=== PATIENT | male | born 1945 | race Caucasian/White ===

== ENCOUNTER 2016-12-13 10:01 | Emergency (ER) | payer OTHER ==
[~2016-12-13 10:01] MED LIST: B-122500 MCG PO; BACTRIM1 TAB PO; CARVEDILOL3.125 MG PO; CRANBERRY PO; FLOMAX0.4 MG PO; FUROSEMIDE20 MG PO; K-TABS10 MEQ PO; KEFLEX500 M1 PO; LEVOFLOXACIN500 MG PO; LIPITOR10 MG PO; LOTRISONE TOP; METFORMIN HCL500 MG PO; NITROSTAT0.4 MG SL; NORVASC10 MG PO; OMEPRAZOLE20 M1 PO; SENNA-TABS8.6 MG PO; VITAMIN C500 M1 PO; XARELTO10 MG PO; XARELTO20 MG PO
--- NOTE | 2016-12-13 12:11 | DIAGNOSTIC IMAGING REPORT ---
PROCEDURE: ABDOMEN/PELVIS WITH CONTRAST CLINICAL INDICATION: ABDOMINAL PAIN TECHNIQUE: 150 ml of Isovue 300 were injected intravenously and axial images were obtained of the abdomen and pelvis with sagittal and coronal reformations. COMPARISON: None. FINDINGS: ABDOMEN: Mild diffuse hepatic steatosis. There is a five, there are two stones, five and 6 mm, dependently near the gallbladder neck. 4 mm calcification in the upper pole of the right kidney, nonobstructing. Multiple cystic structures arising from the cortex of each kidney. Punctate calcification in the spleen. Normal pancreas, adrenal glands, retroperitoneal vessel caliber. Mild calcific distal aortic atherosclerosis. Normal appendix. Fluid levels throughout normal-caliber colon. Occasional diverticula in the proximal colon and mild diverticulosis of the distal colon. Decompressed small bowel loops. There is a staple ring indicating a small bowel anastomoses in the left mid abdomen. There is rectus diastases/wide necked umbilical hernia in the infraumbilical region. PELVIS: The prostate gland is diffusely enlarged. The urinary bladder is moderately distended. Pelvic vessels are normal. No pelvic mass or adenopathy. No inguinal hernias. No free pelvic fluid. Degenerative disc change at the L2-3 level and flowing osteophytosis through the thoracic spine. Vacuum phenomenon at the sacroiliac joints. Degenerative change in the pubic symphysis. IMPRESSION: 1. Mild diverticulosis without acute diverticulitis. 2. Cholelithiasis. 3. Prostatomegaly. 4. Hepatic steatosis. 5. Nonobstructing right upper pole intrarenal calculus. 6. Findings called to the emergency room. All CT scans at this facility use dose modulation, iterative reconstruction, and/or weight-based dosing when appropriate to reduce radiation dose to as low as reasonably achievable.
--- NOTE | 2016-12-13 12:58 | ED ORDER SUMMARY ---
..... Patient: DELFINA RAMIREZ OrderSheet [facility] VisitID: [id number] [place] [address] 71y, M Registration Date/Time: 12/13/2016 ORDER SHEET Weight: 136.0 kg (stated) Allergies: Doxazosin, Erythromycin, Latex, Oxycodone, Penicillins GENERAL ORDERS: CBC w Diff Urgent (10:12/13/2016 Shilpa STEEL) (Ack 10:09 Tatyana) (10:43 JSanders R.N.) CMP Urgent (10:12/13/2016 Shilpa STEEL) (Ack 10:09 Tatyana) (10:43 JSanders R.N.) UA-Culture if indicated Urgent (10:12/13/2016 Shilpa STEEL) (Ack 10:09 Tatyana) (11:04 JSanders R.N.) Amylase Urgent (10:12/13/2016 Shilpa STEEL) (Ack 10:09 Tatyana) (10:43 JSanders R.N.) Lipase Urgent (10:12/13/2016 Shilpa STEEL) (Ack 10:09 Tatyana) (10:43 JSanders R.N.) Blood Culture (No) (N/A) Urgent (11:00 12/13/2016 Shilpa STEEL) (Ack 11:03 Tatyana) (11:47 JSanders R.N.) Lactate, Serum Urgent (11:00 12/13/2016 Shilpa STEEL) (Ack 11:03 Tatyana) (11:47 JSanders R.N.) PT with INR Urgent (11:12 12/13/2016 Shilpa STEEL) (Ack 11:24 Tatyana) (11:47 JSanders R.N.) PTT Urgent (11:12 12/13/2016 Shilpa STEEL) (Ack 11:24 Tatyana) (11:47 JSanders R.N.) CT Abd/Pel w Cont (Yes) (See report) Urgent (11:13 12/13/2016 Shilpa STEEL) (Ack 11:24 Tatyana) (11:47 JSanders R.N.) MEDICATION ORDERS: IV FLUIDS: IV Saline Lock (10:06 12/13/2016 Shilpa STEEL) (10:43 Brittany Corley) IV NS : initial bolus 500 mL (1000 mL/hr), then 125 mL/hr for 4h (NOW); Urgent (10:51 12/13/2016 Shilpa STEEL) (11:04 Brittany Cleveland.N.) IV NS : initial bolus 500 mL (1000 mL/hr), then 1000 mL/hr for X1 (NOW) (Patients BP needs to increase to above 105 systolic) (13:27 12/13/2016 Brittany Corley verbal order read back to Shilpa STEEL) (13:30 Brittany R.NBarry) ORDER SHEET NOTES: [Electronically signed by Bhargavi Tellez R.N. (14:38 12/13/2016)] [Electronically signed by Nathan Velasco MD (16:41 12/13/2016)] [Electronically locked/signed by Bhargavi Tellez R.N. (14:38 12/13/2016)]
--- NOTE | 2016-12-13 12:58 | ED ORDER SUMMARY ---
..... Patient: DELFINA RAMIREZ OrderSheet [facility] VisitID: [id number] [place] [address] 71y, M Registration Date/Time: 12/13/2016 ORDER SHEET Weight: 136.0 kg (stated) Allergies: Doxazosin, Erythromycin, Latex, Oxycodone, Penicillins GENERAL ORDERS: CBC w Diff Urgent (10:12/13/2016 Shilpa STEEL) (Ack 10:09 Tatyana) (10:43 JSanders R.N.) CMP Urgent (10:12/13/2016 Shilpa STEEL) (Ack 10:09 Tatyana) (10:43 JSanders R.N.) UA-Culture if indicated Urgent (10:12/13/2016 Shilpa STEEL) (Ack 10:09 Tatyana) (11:04 JSanders R.N.) Amylase Urgent (10:12/13/2016 Shilpa STEEL) (Ack 10:09 Tatyana) (10:43 JSanders R.N.) Lipase Urgent (10:12/13/2016 Shilpa STEEL) (Ack 10:09 Tatyana) (10:43 JSanders R.N.) Blood Culture (No) (N/A) Urgent (11:00 12/13/2016 Shilpa STEEL) (Ack 11:03 Tatyana) (11:47 JSanders R.N.) Lactate, Serum Urgent (11:00 12/13/2016 Shilpa STEEL) (Ack 11:03 Tatyana) (11:47 JSanders R.N.) PT with INR Urgent (11:12 12/13/2016 Shilpa STEEL) (Ack 11:24 Tatyana) (11:47 JSanders R.N.) PTT Urgent (11:12 12/13/2016 Shilpa STEEL) (Ack 11:24 Tatyana) (11:47 JSanders R.N.) CT Abd/Pel w Cont (Yes) (See report) Urgent (11:13 12/13/2016 Shilpa STEEL) (Ack 11:24 Tatyana) (11:47 JSanders R.N.) MEDICATION ORDERS: IV FLUIDS: IV Saline Lock (10:06 12/13/2016 Shilpa STEEL) (10:43 Brittany Corley) IV NS : initial bolus 500 mL (1000 mL/hr), then 125 mL/hr for 4h (NOW); Urgent (10:51 12/13/2016 Shilpa STEEL) (11:04 Brittany Cleveland.N.) IV NS : initial bolus 500 mL (1000 mL/hr), then 1000 mL/hr for X1 (NOW) (Patients BP needs to increase to above 105 systolic) (13:27 12/13/2016 Brittany Corley verbal order read back to Shilpa STEEL) (13:30 Brittany R.NBarry) ORDER SHEET NOTES: [Electronically signed by Bhargavi Tellez R.N. (14:38 12/13/2016)] [Electronically signed by Nathan Velasco MD (16:41 12/13/2016)] [Electronically locked/signed by Bhargavi Tellez R.N. (14:38 12/13/2016)]
--- NOTE | 2016-12-13 12:58 | ED NURSING NOTES ---
Clinical Report - Nurses [facility] [address] [place] [address] 12/13/2016 10:02 Patient: DELFINA RAMIREZ TRIAGE Triage time 10:11 Dec 13 2016. Acuity: LEVEL 4. Chief Complaint: ABDOMINAL PAIN and NAUSEA and ACHES, PAINFUL URINATION, URINARY FREQUENCY and FLANK PAIN (Patient has some LUQ pain). 10:18 12/13/16. SEPSIS SCREEN: Sepsis Screen. Negative (no infection suspected/documented). NIKA COMA SCORE: Nika Coma Scale: 15- eyes open spontaneously (4); best verbal response- oriented x 4 (5); best motor response- obeys commands (6). --10:18 Bhargavi Tellez R.N. 10:22 12/13/16. --10:22 Bhargavi Tellez R.N. 10:21 12/13/16. BP: 90/69 (regular adult cuff) taken on the left arm, while lying. HR: 96. RR: 20 (regular). O2 saturation: 96% on room air. Temp: 98.2 F (oral). Pain level now: 4/10. Additional comments: LUQ. --10:22 Bhargavi Tellez R.N. Weight: 136 kg stated. Height/Length: 72 inches Per Patient. BMI: 40.7. --10:14 Bhargavi Tellez R.N. Medications AmLODIPine Besylate Oral (Tablet 5 mg) 1 tablet, daily. Atorvastatin Calcium Oral 40 mg, at bedtime. Cyanocobalamin ER Oral (Tablet Extended Release 2000 mcg) 1 tablet. Furosemide Oral (Tablet 20 mg) 3 tab, daily. --10:13 Bhargavi Tellez R.N. Carvedilol Oral (Tablet 3.125 mg) 1 tablet, BID. Cranberry Oral 6400mg, daily. Lisinopril Oral (Tablet 40 mg) 1 tablet, daily. Potassium Chloride Oral 10 meq, daily. Senna Oral. Tamsulosin HCl Oral (Capsule 0.4 mg) 2 capsules, at bedtime. Vitamin c Oral 2000mg, daily. --10:13 Bhargavi Tellez R.N. MetFORMIN HCl Oral (Tablet 500 mg) 2 tablets, 2x a day. --11:15 Bhargavi Tellez R.N. Allopurinol Oral (Tablet 300 mg) 1 tablet, daily. --11:58 Bhargavi Tellez R.N. Ammonium Lactate External (Lotion 12 %) Small amount. --11:59 Bhargavi Tellez R.N. Aspirin Oral (Tablet Chewable 81 mg) 1 tablet, daily. --12:00 Bhargavi Tellez R.N. Colchicine Oral (Tablet 0.6 mg) 2 tablets, as needed. --12:00 Bhargavi Tellez R.N. Xarelto Oral (Tablet 20 mg) 1 tablet, daily. --12:01 Bhargavi Tellez R.N. The following entry was struck by Bhargavi Tellez R.N., 11:57 (12/13/16) Reason - other. <<STRICKEN ENTRY-- Rivaroxaban Oral (Tablet 20 mg), daily. --10:13 Bhargavi Tellez R.N. --END STRIKE>> The following entry was struck and corrected by Bhargavi Tellez R.N., 11:56 (12/13/16) Reason for correction - other(correction). <<STRICKEN ENTRY-- MetFORMIN HCl Oral. --11:15 Nathan Velasco MD --END STRIKE>> The following entry was struck and corrected by Bhargavi Tellez R.N., 11:55 (12/13/16) Reason for correction - other(correction). <<STRICKEN ENTRY-- Furosemide Oral 20 mg, 2x a day. --10:13 Bhargavi Tellez R.N. --END STRIKE>> The following entry was struck and corrected by Bhargavi Telelz R.N., 11:55 (12/13/16) Reason for correction - other(correction). <<STRICKEN ENTRY-- Cyanocobalamin ER Oral 2500mcg. --10:13 Bhargavi Tellez R.N. --END STRIKE>> The following entry was struck by Bhargavi Tellez R.N., 11:54 (12/13/16) Reason - other. <<STRICKEN ENTRY-- Clotrimazole-Betamethasone External. --10:13 Bhargavi Tellez R.N. --END STRIKE>> The following entry was struck and corrected by Bhargavi Tellez R.N., 11:54 (12/13/16) Reason for correction - other(correction). <<STRICKEN ENTRY-- Atorvastatin Calcium Oral 10 mg, at bedtime. --10:13 Bhargavi Tellez R.N. --END STRIKE>> The following entry was struck and corrected by Bhargavi Tellez R.N., 11:53 (12/13/16) Reason for correction - other(correction). <<STRICKEN ENTRY-- AmLODIPine Besylate Oral 10 mg. --10:13 Bhargavi Tellez R.N. --END STRIKE>> The following entry was struck by Nathan Velasco MD, 11:06 (12/13/16) Reason - other. <<STRICKEN ENTRY-- SMZ-TMP DS Oral. --10:13 Bhargavi Tellez R.N. --END STRIKE>> The following entry was struck by Nathan Velasco MD, 11:06 (12/13/16) Reason - other. <<STRICKEN ENTRY-- Omeprazole Oral 20 mg, daily. --10:13 Bhargavi Tellez R.N. --END STRIKE>> The following entry was struck by Nathan Velasco MD, 11:06 (12/13/16) Reason - other. <<STRICKEN ENTRY-- Lovenox Subcutaneous (taking due surgery scheduled tomorrow). --10:13 Bhargavi Tellez R.N. --END STRIKE>>. Allergies Doxazosin. Erythromycin. Latex. Oxycodone. Penicillins. --10:13 Bhargavi Tellez R.N. History Arrived by private vehicle. Historian: patient. Accompanied by family. ( Patient states that he had pain yesterday in his left flank, PCP was going to do an US on the area but when patient was getting ready to go to this he became dizzy so he just layed down with a heating pad, when he woke up this morning his pain was in his LUQ intermittent dull pain so he tried heat again for this and decided to come in to be evaluated. This LUQ pain is in the same location of his SBO surgery). This started yesterday. ( Patient says he has hx of kidney stones and diverticulitis, partial SBR 11 years ago.). He has had moderate, dull, aching, intermittent abdominal pain. The pain is described as located in the LUQ and associated with nausea. Last oral intake by patient was last night (8 PM). Treatment [employer]: (Heating pad to left flank last night, and RUQ pain today). PAST MEDICAL HX: Diabetes mellitus. SOCIAL HX: Smoker- current status unknown. No alcohol use or drug use. No recent travel. No infectious disease exposure. No known contact with a sick individual. ABUSE ASSESSMENT: No report of abuse. --10:18 Bhargavi Tellez R.N. PROBLEMS: TIA - Transient Ischemic Attack. Myocardial Infarction. Diabetes Mellitus. Benign Prostatic Hypertrophy. Arrhythmia. Atrial Fibrillation. Renal Insufficiency. Congestive Heart Failure. Pyelonephritis. Bursitis. Diverticulitis. Rheumatoid Arthritis. Hypertension. Nephrolithiasis. Heart Failure. --10:14 Bhargavi Tellez R.N. UTI - Urinary Tract Infection [RuleOut]. --12:53 Nathan Velasco MD The following entry was modified by Nathan Velasco MD, 12:53 <<STRICKEN ENTRY-- UTI - Urinary Tract Infection. --00:41 Bhargavi Tellez R.N. --END STRIKE>>. ADDITIONAL SURGERIES: Small intestine excision. --10:14 Bhargavi Tellez R.N. Interventions ID band on patient. To treatment room. --10:18 Bhargavi Tellez R.N. PHYSICAL ASSESSMENT 10:21 12/13/16. Ambulatory to room. GENERAL / NEURO / PSYCH: Alert. Oriented X 4. RESPIRATORY: Respirations not labored. CVS: Capillary refill less than 2 seconds. GI / : The patient has had nausea. Obesity. Abdominal tenderness. Rebound tenderness. Guarding present. Diminished bowel sounds in the RLQ and LLQ. EXTREMITIES: Lower extremity edema. SKIN: Skin is warm. --10:21 Bhargavi Tellez R.N. NURSING PROGRESS NOTES 10:23 12/13/16. The plan of care for this patient has been created. Monitoring of patient in place. Patient gowned. Head of bed elevated. Reassurance given. Two patient identifiers checked. Call light placed in reach. Side rails up x 1. Bed placed in lowest position. Brakes of bed on. Patient ready for evaluation- chart flagged and ED physician notified. --10:23 Bhargavi Tellez R.N. 10:42 12/13/16. ( Patient asymptomatic laying down, BP reports 87/65). --10:42 Bhargavi Tellez R.N. 10:41 12/13/16. BP: 87/65 (large adult cuff) taken on the left arm, while lying. HR: 82. RR: 20 (regular). O2 saturation: 98% on room air. Pain level now: 0/10. --10:42 Bhargavi Tellez R.N. 10:43 12/13/2016 Site #1 started via IV in the right antecubital space with an 20g angiocath, with aseptic technique and good blood return; one attempt. Blood drawn: rainbow set. Labeled in the presence of the patient and sent to the lab. Saline lock flushed with 10 mL saline. --10:43 Bhargavi Tellez R.N. 11:04 12/13/2016 Started bag #1 1000 mL IV Fluids IV NS (Saline); bolus of 500 mL over 30 second(s) then at 1000 mL/hr over 1 hour(s) via site #1 via IV pump. Allergies verified and confirmed 5 rights. IV patency established. IV site checked: no pain, redness, or swelling. IV flushed thoroughly pre- and post-medication administration. --11:04 Bhargavi Tellez R.N. 11:37 12/13/16. Patient transported to radiology by wheelchair with tech. (11:36 Dec 13 2016). --11:37 Bhargavi Tellez R.N. 11:45 12/13/16. Patient returned from radiology by wheelchair with tech. (11:45 Dec 13 2016). --11:45 Bhargavi Tellez R.N. 11:52 12/13/16. ( Patient was taken off the IV pump and monitors by [employer], he was put back on now by this nurse). --11:52 Bhargavi Tellez R.N. 11:52 12/13/16. BP: 107/76 (large adult cuff) taken on the left arm, while sitting. HR: 78. RR: 20 (regular). O2 saturation: 99% on room air. Pain level now: 0/10. --11:52 Bhargavi Tellez R.N. 11:52 12/13/16. --11:52 Bhargavi Tellez R.N. 12:02 12/13/2016 IV Fluids IV NS via IV site #1 Rate Changed: bag #1 decreased to 125 mL/hr via IV pump. IV patency established. IV site checked: no pain, redness, or swelling. IV flushed thoroughly. Confirmed 5 Rights. --12:02 Bhargavi Tellez R.N. 12:33 12/13/16. BP: 93/59 (regular adult cuff) taken on the left arm, while lying. HR: 82. RR: 20. O2 saturation: 96% on room air. Temp: 97.8 F (oral). Pain level now: 0/10. --12:35 Bhargavi Tellez R.N. 12:35 12/13/16. ( Patient says he doesn't need anything for now and neither does spouse, he is resting comfortably with spouse at bedside). --12:35 Bhargavi Tellez R.N. 11:30 12/13/16. BP: 92/68 (large adult cuff) taken on the left arm, while lying. HR: 74. RR: 20. O2 saturation: 96% on room air. Pain level now: 0/10. --12:56 Bhargavi Tellez R.N. 13:19 12/13/16. ( Patient was up and walking with me around the halls x 2 and BP did not come up enough, when he went to CT scan his BP increased dramatically, Physician informed). --13:19 Bhargavi Tellez R.N. 13:16 12/13/16. BP: 83/57 (large adult cuff) taken on the left arm, while standing. HR: 76 (regular). RR: 20 (regular). O2 saturation: 100% on room air. Temp: 97.8 F (oral). Pain level now: 0/10. --13:19 Bhargavi Tellez R.N. 13:26 12/13/2016 IV Fluids IV NS Discontinued: bag #1 discontinued. Total amount infused: 700 mL. IV patency established. IV site checked: no pain, redness, or swelling. IV flushed thoroughly. --13:26 Bhargavi Tellez R.N. 13:29 12/13/2016 Started bag #1 1000 mL IV Fluids IV NS (Saline); bolus of 500 mL over 30 minute(s) then at 1000 mL/hr over 1 hour(s) via site #1 via dial-a-flow. Allergies verified and confirmed 5 rights. IV patency established. IV site checked: no pain, redness, or swelling. IV flushed thoroughly pre- and post-medication administration. --13:30 Bhargavi Tellez R.N. 13:52 12/13/16. BP: 101/70. HR: 81. RR: 20 (regular). O2 saturation: 100% on room air. Pain level now: 0/10. --13:53 Bhargavi Tellez R.N. 13:53 12/13/16. ( Patient was walked twice around the ER loop, BP is still 101/70). --13:53 Bhargavi Tellez R.N. 14:37 12/13/2016 IV Fluids IV NS Discontinued: bag #2 discontinued upon discharge. Total amount infused: 500 mL. IV patency established. IV site checked: no pain, redness, or swelling. IV flushed thoroughly. --14:37 Bhargavi Tellez R.N. DISPOSITION / DISCHARGE 14:34 12/13/16. BP: 101/71 (large adult cuff) taken on the left arm, while sitting. HR: 68 (regular). RR: 20 (regular). O2 saturation: 100% on room air. Temp: 97.7 F (oral). Pain level now: 0/10. --14:36 Bhargavi Tellez R.N. 14:22 12/13/2016 Site #1 removed upon discharge. Bandaid applied. --14:37 Bhargavi Tellez R.N. 14:36 12/13/16. Departure time: 14:Dec 13 2016. Condition at departure: improved. No learning barriers present. Discharge instructions provided and reviewed with the patient and spouse. Reviewed medication(s) side effects, precautions and dosing information. Prescription(s) given to the patient. Patient verbalized understanding. Written instructions provided in [place]. The patient was discharged by the physician. --14:36 Bhargavi Tellez R.N. Locked/Released at 12/13/2016 14:38 by Bhargavi Tellez R.N.
--- NOTE | 2016-12-13 12:58 | ED CLINICAL REPORT ---
Clinical Report - Physicians/Mid Levels [facility] [address] [place] [address] 12/13/2016 10:02 Patient: DELFINA RAMIREZ Time Seen: 10:05. Arrived- By private vehicle. Historian- patient. HISTORY OF PRESENT ILLNESS Chief Complaint: ABDOMINAL PAIN. This started several days ago and is still present and now worse. It was gradual in onset and has been intermittent and waxing/waning. At its maximum, severity described as 8 / 10. When seen in the E.D., severity described as 0 / 10. Modifying factors- relieved by rest. It is described as sharp and it is described as located in the left upper quadrant. The patient has had nausea (for several weeks). No loss of appetite or vomiting. He has had mild diarrhea (recently). This has occurred twice. No bloody diarrhea. The patient has an additional complaint of severe, intermittent abdominal pain for 6 hours in the L flank yesterday. Similar symptoms previously: Once. Diagnosis: diverticulitis. ( this occurred about 11 years ago). REVIEW OF SYSTEMS No difficulty with urination, pain with urination, urinary frequency, chills or fever. No sweats, calf pain, chest pain, cough or difficulty breathing. No pedal edema. He has had palpitations (chronically). He has had mild, occasional diarrhea. This has occurred twice. No bloody diarrhea. He reports that he had a colonoscopy about 10 years ago and had one polyp. All systems otherwise negative, except as recorded above. PAST HISTORY PCP - [facility] in [place]. Problems: Chest Pain. TIA - Transient Ischemic Attack. Myocardial Infarction. Diabetes Mellitus. Benign Prostatic Hypertrophy. Arrhythmia. UTI - Urinary Tract Infection. Atrial Fibrillation. Renal Insufficiency. Congestive Heart Failure. Pyelonephritis. Bursitis. Diverticulitis. Rheumatoid Arthritis. Hypertension. Nephrolithiasis. Heart Failure. Additional Surgeries: Small intestine excision. Medications: Xarelto Oral (Tablet 20 mg) 1 tablet, daily. Colchicine Oral (Tablet 0.6 mg) 2 tablets, as needed. Aspirin Oral (Tablet Chewable 81 mg) 1 tablet, daily. Ammonium Lactate External (Lotion 12 %) Small amount. Allopurinol Oral (Tablet 300 mg) 1 tablet, daily. MetFORMIN HCl Oral (Tablet 500 mg) 2 tablets, 2x a day. Carvedilol Oral (Tablet 3.125 mg) 1 tablet, BID. Cranberry Oral 6400mg, daily. Lisinopril Oral (Tablet 40 mg) 1 tablet, daily. Potassium Chloride Oral 10 meq, daily. Senna Oral. Tamsulosin HCl Oral (Capsule 0.4 mg) 2 capsules, at bedtime. Vitamin c Oral 2000mg, daily. AmLODIPine Besylate Oral (Tablet 5 mg) 1 tablet, daily. Atorvastatin Calcium Oral 40 mg, at bedtime. Cyanocobalamin ER Oral (Tablet Extended Release 2000 mcg) 1 tablet. Furosemide Oral (Tablet 20 mg) 3 tab, daily. Allergies: Doxazosin. Erythromycin. Latex. Oxycodone. Penicillins. SOCIAL HISTORY Former smoker, end date 1971. No alcohol use or drug use. Is a local resident. FAMILY HISTORY Diabetes in first-degree relative (father) and grandparent; heart disease in first-degree relative (father); cancer in first-degree relative (mother). ADDITIONAL NOTES The nursing notes have been reviewed. PHYSICAL EXAM Vital Signs: 12/13/2016 10:21 BP: 90/69. HR: 96. RR: 20. O2 saturation: 96%. Temp: 98.2 F. Pain level now: 4/10. Have been reviewed. Appearance: Alert. No acute distress. He is morbidly obese. Eyes: Pupils equal, round and reactive to light. ENT: Pharynx normal. Neck: Normal inspection. Neck supple. CVS: Abnormal rhythm, which is irregularly irregular. Heart sounds normal. Respiratory: No respiratory distress. Breath sounds normal. Abdomen: Soft. Moderate tenderness in the left upper quadrant. Bowel sounds normal. No organomegaly. No mass. Obese. Back: Normal inspection. Skin: Skin warm and dry. Normal skin color. Normal skin turgor. Extremities: Extremities exhibit normal ROM. No calf tenderness. No lower extremity edema. Neuro: No motor deficit. LABS, X-RAYS, AND EKG Abdominal CT: IMPRESSION: 1. Mild diverticulosis without acute diverticulitis. 2. Cholelithiasis. 3. Prostatomegaly. 4. Hepatic steatosis. 5. Nonobstructing right upper pole intrarenal calculus. The study was interpreted contemporaneously by me and discussed with the radiologist. Laboratory Tests: UA-Culture if indicated: (TERA: 12/13/2016 11:00) ( MsgRcvd 12/13/2016 11:19) Final results Test Result Flag Units (Reference) URINE COLOR YELLOW URINE APPEARANCE CLEAR URINE GLUCOSE NEGATIVE (NEGATIVE) URINE BILIRUBIN NEGATIVE (NEGATIVE) URINE KETONE NEGATIVE (NEGATIVE) URINE SPECIFIC GRAVITY 1.010 (1.010-1.030) URINE PH 5.5 (5.0-8.0) URINE PROTEIN NEGATIVE (NEGATIVE) URINE UROBILINOGEN 0.2 EU/dL (0.2-1.0) URINE NITRITE NEGATIVE (NEGATIVE) URINE BLOOD NEGATIVE (NEGATIVE) URINE LEUK ESTERASE TRACE (NEGATIVE) URINE RBC NONE SEEN rbc/hpf (0-1) URINE WBC 5-10 wbc/hpf (0-1) URINE EPITHELIAL CELLS 0-1 EPI/hpf (0-5) URINE BACTERIA FEW (1+) (NONE SEEN) URINE COMMENT CULTURE INDICATED URINE CULTURES ARE SET-UP BASED ON THE FOLLOWING CRITERIA:POSITIVE NITRITEPOSITIVE LEUKOCYTE ESTERASEGREATER THAN 10 WHITE BLOOD CELLSMODERATE (2+) OR GREATER BACTERIA CBC w Diff: (TERA: 12/13/2016 10:40) ( MsgRcvd 12/13/2016 10:56) Final results Test Result Flag Units (Reference) WHITE BLOOD COUNT 11.8 H K/uL (4.5-11.5) RED BLOOD COUNT 5.31 M/uL (4.50-5.90) HEMOGLOBIN 15.1 gm/dL (13.5-17.5) HEMATOCRIT 46.5 % (41.0-53.0) MEAN CELL VOLUME 88 fL (80-100) MEAN CORPUSCULAR HGB 29 pg (26-34) MEAN CORPUSCULAR HGB CONC 33 g/dL (31-37) RED CELL DISTRIBUTION WIDTH 13.2 % (11.6-14.8) PLATELET COUNT 177 K/uL (150-400) NEUTROPHIL % 79.6 H % (50-75) LYMPH % 15.2 L % (25-40) MONO % 4.0 % (3-14) EOSINOPHIL % 0.9 % (0-4) BASOPHIL % 0.3 % (0-2) PT with INR: (TERA: 12/13/2016 10:40) ( [facility] 12/13/2016 12:09) Final results Test Result Flag Units (Reference) INR 1.6 H (0.8-1.2) Low Intensity Therapy: INR 1.5-2.0 PT range 18.5-23.1Mod.Intensity Therapy: INR 2.0-3.0 PT range 23.1-31.5High Intensity Therapy: INR 2.5-3.5 PT range 27.4-35.5High Intensity Therapy 2: INR 3.0-4.0 PT range 31.5-39.3 APTT 39 H SECONDS (24-34) Lactate, Serum: (TERA: 12/13/2016 11:20) ( [facility] 12/13/2016 12:18) Final results Test Result Flag Units (Reference) LACTIC ACID 1.8 mmol/L (0.4-2.0) CMP: (TERA: 12/13/2016 10:40) ( [facility] 12/13/2016 11:11) Final results Test Result Flag Units (Reference) GLUCOSE 147 H mg/dL (70-110) BUN 21 H mg/dL (7-18) CREATININE 1.2 mg/dL (0.6-1.3) Estimated GFR >60 mL/min Estimated GFR- >60 mL/min Note: Persistent reduction over 3 months in eGFR<60 mL/min/1.73 m2 defines CKD. Patients with eGFR values>=60 mL/min/1.73 m2 may also have CKD if evidence ofpersistent proteinuria. Additional information may be foundat www.kidney.org. SODIUM 139 mmol/L (136-145) POTASSIUM 4.1 mmol/L (3.5-5.1) CHLORIDE 105 mmol/L (98-107) CARBON DIOXIDE 23 mmol/L (21-32) CALCIUM 9.6 mg/dL (8.5-10.1) TOTAL PROTEIN 7.3 g/dL (6.4-8.2) ALBUMIN 3.6 g/dL (3.3-5.0) BILIRUBIN, TOTAL 0.7 mg/dL (0.0-1.0) ALKALINE PHOSPHATASE 70 U/L (46-116) AST (SGOT) 18 U/L (15-37) ALT (SGPT) 40 U/L (12-78) LIPASE 132 U/L (73-393) AMYLASE 43 U/L (25-115) . PROGRESS AND PROCEDURES Course of Care: Patient is stable. Patient/family counseled. Old medical records ordered. Disposition: Discharged. Condition: stable. CLINICAL IMPRESSION Cholelithiasis. Acute left upper quadrant abdominal pain of unknown cause. Chronic diverticulosis. Acute urinary tract infection. INSTRUCTIONS Drink plenty of fluids. (Hold your Metformin for 2 days as discussed.). Warnings: Further evaluation is necessary. GENERAL WARNINGS: Return or contact your physician immediately if your condition worsens or changes unexpectedly, if not improving as expected, or if other problems arise. Your Current Medications: CONTINUE TAKING THE FOLLOWING MEDICATIONS: Allopurinol Oral : Tablet 300 mg, 1 tablet daily. AmLODIPine Besylate Oral : Tablet 5 mg, 1 tablet daily. Ammonium Lactate External : Lotion 12 %, Small amount. Aspirin Oral : Tablet Chewable 81 mg, 1 tablet daily. Atorvastatin Calcium Oral : 40 mg at bedtime. Carvedilol Oral : Tablet 3.125 mg, 1 tablet BID. Colchicine Oral : Tablet 0.6 mg, 2 tablets, prn. Cranberry Oral : 6400mg daily. Cyanocobalamin ER Oral : Tablet Extended Release 2000 mcg, 1 tablet. Furosemide Oral : Tablet 20 mg, 3 tab daily. Lisinopril Oral : Tablet 40 mg, 1 tablet daily. Potassium Chloride Oral : 10 meq daily. Senna Oral. Tamsulosin HCl Oral : Capsule 0.4 mg, 2 capsules at bedtime. Vitamin c Oral : 2000mg daily. Xarelto Oral : Tablet 20 mg, 1 tablet daily. CONTINUE TAKING THE FOLLOWING MEDICATIONS UNTIL YOU CHECK WITH YOUR PHYSICIAN: MetFORMIN HCl Oral : Tablet 500 mg, 2 tablets 2x a day. Prescription Medications: Cipro 500 mg: take 1 tab orally every 12 hours for 10 days. Dispense twenty (20). No refills. Substitution is permissible. Follow-up: Follow up with your doctor tomorrow. Call for an appointment. Follow up with a raw scales operator- as recommended by your primary care physician- Schedule your routine screening colonoscopy as discussed. Understanding of the discharge instructions verbalized by patient. (Electronically signed by Nathan Velasco MD 12/13/2016 16:41)
--- NOTE | 2016-12-13 16:41 | ED MAR SUMMARY ---
..... Medication Administration Record [facility] [address] [place] [address] Patient: DELFINA RAMIREZ Visit ID: [id number] 71y, M Weight: 136.0 kg Height/Length: 72 in BMI: 40.7 ALLERGIES: Doxazosin, Erythromycin, Latex, Oxycodone, Penicillins Start 11:04 12/13/2016 Bhargavi Tellez RBarryN., Stop 13:26 12/13/2016 Bhargavi Tellez R.N. Medication Administered: IV NS (SALINE), Dose: IV Fluids over 1 hour(s), Rate: 1000 mL/hr, Bolus: 500 mL over 30 second(s), Dispensed: 1000 mL bag, Site: #1 right AC. Medication Ordered: IV NS : initial bolus 500 mL (1000 mL/hr), then 125 mL/hr for 4h (NOW); Urgent. Start 13:29 12/13/2016 Bhargavi Tellez RBarryN., Stop 14:37 12/13/2016 Bhargavi Tellez R.N. Medication Administered: IV NS (SALINE), Dose: IV Fluids over 1 hour(s), Rate: 1000 mL/hr, Bolus: 500 mL over 30 minute(s), Dispensed: 1000 mL bag, Site: #1 right AC. Medication Ordered: IV NS : initial bolus 500 mL (1000 mL/hr), then 1000 mL/hr for X1 (NOW) (Patients BP needs to increase to above 105 systolic).
--- NOTE | 2016-12-13 16:41 | ED MED RECONCILIATION SUMMARY ---
Patient: DELFINA RAMIREZ Medication Reconciliation Report [facility] VisitID: [id number] [address] [place] [address] 71y, M Registration Date/Time: 12/13/2016 Weight: 136.0 kg Height/Length: 72 in. BMI: 40.7 ALLERGIES: Doxazosin, Erythromycin, Latex, Oxycodone, Penicillins The patient's Home Medications are listed below: CONTINUE TAKING THE FOLLOWING MEDICATIONS: Allopurinol Oral (300 mg) 1 tablet, daily AmLODIPine Besylate Oral (5 mg) 1 tablet, daily Ammonium Lactate External (12 %) Small amount Aspirin Oral (81 mg) 1 tablet, daily Atorvastatin Calcium Oral 40 mg, at bedtime Carvedilol Oral (3.125 mg) 1 tablet, BID Colchicine Oral (0.6 mg) 2 tablets Cranberry Oral 6400mg, daily Cyanocobalamin ER Oral (2000 mcg) 1 tablet Furosemide Oral (20 mg) 3 tab, daily Lisinopril Oral (40 mg) 1 tablet, daily Potassium Chloride Oral 10 meq, daily Senna Oral Tamsulosin HCl Oral (0.4 mg) 2 capsules, at bedtime Vitamin c Oral 2000mg, daily Xarelto Oral (20 mg) 1 tablet, daily CONTINUE TAKING THE FOLLOWING MEDICATIONS UNTIL YOU CHECK WITH YOUR PHYSICIAN: MetFORMIN HCl Oral (500 mg) 2 tablets, 2x a day The source(s) of the original Home Medication information: Not obtained. The following Medications were given to the patient in the Emergency Department: IV NS IV Fluids bolus 500 mL over 30 second(s), then 1000 mL/hr, administered: 12/13/2016 11:04:00 AM IV NS IV Fluids bolus 500 mL over 30 minute(s), then 1000 mL/hr, administered: 12/13/2016 1:29:00 PM The following Medications were prescribed to the patient: Cipro 500 mg: take 1 tab orally every 12 hours for 10 days. Dispense twenty (20). No refills. Substitution is permissible. -- Nathan Velasco MD
--- NOTE | 2016-12-13 16:41 | ED MED RECONCILIATION SUMMARY ---
Patient: DELFINA RAMIREZ Medication Reconciliation Report [facility] VisitID: [id number] [address] [place] [address] 71y, M Registration Date/Time: 12/13/2016 Weight: 136.0 kg Height/Length: 72 in. BMI: 40.7 ALLERGIES: Doxazosin, Erythromycin, Latex, Oxycodone, Penicillins The patient's Home Medications are listed below: CONTINUE TAKING THE FOLLOWING MEDICATIONS: Allopurinol Oral (300 mg) 1 tablet, daily AmLODIPine Besylate Oral (5 mg) 1 tablet, daily Ammonium Lactate External (12 %) Small amount Aspirin Oral (81 mg) 1 tablet, daily Atorvastatin Calcium Oral 40 mg, at bedtime Carvedilol Oral (3.125 mg) 1 tablet, BID Colchicine Oral (0.6 mg) 2 tablets Cranberry Oral 6400mg, daily Cyanocobalamin ER Oral (2000 mcg) 1 tablet Furosemide Oral (20 mg) 3 tab, daily Lisinopril Oral (40 mg) 1 tablet, daily Potassium Chloride Oral 10 meq, daily Senna Oral Tamsulosin HCl Oral (0.4 mg) 2 capsules, at bedtime Vitamin c Oral 2000mg, daily Xarelto Oral (20 mg) 1 tablet, daily CONTINUE TAKING THE FOLLOWING MEDICATIONS UNTIL YOU CHECK WITH YOUR PHYSICIAN: MetFORMIN HCl Oral (500 mg) 2 tablets, 2x a day The source(s) of the original Home Medication information: Not obtained. The following Medications were given to the patient in the Emergency Department: IV NS IV Fluids bolus 500 mL over 30 second(s), then 1000 mL/hr, administered: 12/13/2016 11:04:00 AM IV NS IV Fluids bolus 500 mL over 30 minute(s), then 1000 mL/hr, administered: 12/13/2016 1:29:00 PM The following Medications were prescribed to the patient: Cipro 500 mg: take 1 tab orally every 12 hours for 10 days. Dispense twenty (20). No refills. Substitution is permissible. -- Nathan Velasco MD
--- NOTE | 2016-12-13 16:41 | ED MAR SUMMARY ---
..... Medication Administration Record [facility] [address] [place] [address] Patient: DELFINA RAMIREZ Visit ID: [id number] 71y, M Weight: 136.0 kg Height/Length: 72 in BMI: 40.7 ALLERGIES: Doxazosin, Erythromycin, Latex, Oxycodone, Penicillins Start 11:04 12/13/2016 Bhargavi Tellez RBarryN., Stop 13:26 12/13/2016 Bhargavi Tellez R.N. Medication Administered: IV NS (SALINE), Dose: IV Fluids over 1 hour(s), Rate: 1000 mL/hr, Bolus: 500 mL over 30 second(s), Dispensed: 1000 mL bag, Site: #1 right AC. Medication Ordered: IV NS : initial bolus 500 mL (1000 mL/hr), then 125 mL/hr for 4h (NOW); Urgent. Start 13:29 12/13/2016 Bhargavi Tellez RBarryN., Stop 14:37 12/13/2016 Bhargavi Tellez R.N. Medication Administered: IV NS (SALINE), Dose: IV Fluids over 1 hour(s), Rate: 1000 mL/hr, Bolus: 500 mL over 30 minute(s), Dispensed: 1000 mL bag, Site: #1 right AC. Medication Ordered: IV NS : initial bolus 500 mL (1000 mL/hr), then 1000 mL/hr for X1 (NOW) (Patients BP needs to increase to above 105 systolic).
--- NOTE | 2016-12-13 16:41 | ED DISCHARGE INSTRUCTIONS ---
Patient: DELFINA RAMIREZ General Instructions [facility] VisitID: [id number] [place] [address] 71y, M Registration Date/Time: 12/13/2016 Cholelithiasis. Acute left upper quadrant abdominal pain of unknown cause. Chronic diverticulosis. Acute urinary tract infection. INSTRUCTIONS Drink plenty of fluids. (Hold your Metformin for 2 days as discussed.). Warnings: Further evaluation is necessary. GENERAL WARNINGS: Return or contact your physician immediately if your condition worsens or changes unexpectedly, if not improving as expected, or if other problems arise. Your Current Medications: CONTINUE TAKING THE FOLLOWING MEDICATIONS: Allopurinol Oral : Tablet 300 mg, 1 tablet daily. AmLODIPine Besylate Oral : Tablet 5 mg, 1 tablet daily. Ammonium Lactate External : Lotion 12 %, Small amount. Aspirin Oral : Tablet Chewable 81 mg, 1 tablet daily. Atorvastatin Calcium Oral : 40 mg at bedtime. Carvedilol Oral : Tablet 3.125 mg, 1 tablet BID. Colchicine Oral : Tablet 0.6 mg, 2 tablets, prn. Cranberry Oral : 6400mg daily. Cyanocobalamin ER Oral : Tablet Extended Release 2000 mcg, 1 tablet. Furosemide Oral : Tablet 20 mg, 3 tab daily. Lisinopril Oral : Tablet 40 mg, 1 tablet daily. Potassium Chloride Oral : 10 meq daily. Senna Oral. Tamsulosin HCl Oral : Capsule 0.4 mg, 2 capsules at bedtime. Vitamin c Oral : 2000mg daily. Xarelto Oral : Tablet 20 mg, 1 tablet daily. CONTINUE TAKING THE FOLLOWING MEDICATIONS UNTIL YOU CHECK WITH YOUR PHYSICIAN: MetFORMIN HCl Oral : Tablet 500 mg, 2 tablets 2x a day. Prescription Medications: Cipro 500 mg: take 1 tab orally every 12 hours for 10 days. Dispense twenty (20). No refills. Substitution is permissible. Follow-up: Follow up with your doctor tomorrow. Call for an appointment. Follow up with a carbide die maker- as recommended by your primary care physician- Schedule your routine screening colonoscopy as discussed. Understanding of the discharge instructions verbalized by patient. ADDITIONAL INFORMATION Abdominal Pain,Uncertain Cause [Male] Based on your visit today, the exact cause of your abdominalpain is not clear. Your exam and tests do not indicate a dangerous cause at this time. However, the signs of a serious problem may take more time to appear. Although your evaluation was reassuring today, sometimes early in the course of many conditions, exam and lab tests can appear normal. Therefore, it is important for you to watch for any new symptoms or worsening of your condition. Causes It may not be obvious what caused your symptoms. Pay attention to things that do seem to make your symptoms worse or better and discuss this with your doctor when you follow up. Diagnosis The evaluation of abdominal pain in the emergency department may onlyrequire an exam by the doctor or it may include blood, urine or imaging studies, depending on many factors. Sometimes exams and tests can identify a cause but in many cases, a clear cause is not found. Further testing at follow up visits may help to suggest a clear diagnosis. Home Care Rest as much as possible until your next exam. Try to avoid any medications (unless otherwise directed by your doctor), foods, activities, or other factors that you may have contributed to your symptoms. Try to eat foods that you know that you have tolerated well in the past. Certain diets may be recommended for some conditions that cause abdominal pain. However, since the cause of your symptoms may not be clear, discuss your diet more with your primary care provider or specialist for further recommendations. Eating several small meals per day as opposed to 2 or 3 larger meals may help. Monitor closely for anything that may make your symptoms worse or better. Pay close attention to symptoms below that may indicate worsening of your condition. Follow Up and Precautions See your doctoras instructed or sooneror if your symptoms are not improving.In some cases, you may need more testing. When to Seek Medical Attention Contact your doctor or see medical attention ifany of the following occur: Pain is becoming worse You are unable to take your medications due to excessive vomiting Swelling of the abdomen Fever of 100.4F (38C) or higher, or as directed by your health care provider Blood in vomit or bowel movements (dark red or black color) Jaundice (yellow color of eyes and skin) New onset of weakness, dizziness or fainting New onset of chest, arm, back, neck or jaw pain GallstonesWith Biliary Colic [Confirmed Dx] The abdominal pain that you have today is due to spasm of the gallbladder. The gallbladder is a small sac under the liver which stores and releases bile. Bile is a fluid that aids in the digestion of fat. A gallstone may form inside the gallbladder and block the flow of bile fluid. This causes mild to severe crampy pain in the mid or right upper abdomen with nausea and vomiting. Home Care: Rest in bed and follow a clear liquid diet until feeling better. If pain or nausea medicine was given to help with your symptoms, take these as directed. Fat in your diet makes the gallbladder contract and may cause increased pain. Therefore, avoid fat in your diet over the next two days and follow a low-fat diet after that. If you are overweight, a low-fat diet will also help you lose weight. Follow Up with your doctor. There is a 50% chance that you will have another episode of pain from your gallstones during the next 2 years. Removal of the gallbladder is the treatment of choice to prevent this. Schedule an appointment with your own doctor during the next week to discuss the treatment options. Get Prompt Medical Attention if any of the following occur: Pain gets worse or moves to the right lower abdomen Repeated vomiting Swelling of the abdomen Pain lasts over 6 hours Fever of 100.4F (38C) or higher, or as directed by your healthcare provider Weakness, dizziness or fainting Dark urine or light colored stools Yellow color of the skin or eyes Chest, arm, back, neck or jaw pain Bladder Infection,Male (Adult) A bladder infection ("cystitis" or "UTI") usually causes a constant urge to urinate, and a burning when passing urine. Urine may be cloudy, smelly or dark. There may be also be pain in the lower abdomen. Cystitis in males is not common. It may be caused by a partial blockage in the urinary system that keeps the bladder from emptying completely. This is most often related to an enlarged prostate gland. Home Care: Drink lots of fluids (at least 6-8 glasses a day). This will flush the bacteria out of your bladder. Avoid sexual intercourse until your symptoms are gone. Avoid caffeine, alcohol, and spicy foods. They could irritate the bladder. A bladder infection is treated with antibiotics. You may also be given Pyridium (generic - phenazopyridine) to reduce burning with urination. This will cause urine to become a bright orange color, which can stain clothing. Follow Up with your doctor or this facility if ALL symptoms have not cleared within five days. It is important to keep your follow up appointment to discuss with your doctor the need for further tests of the urinary tract. Get Prompt Medical Attention if any of the following occur: Fever of 100.4F (38C) or higher, or as directed by your healthcare provider No improvement by the third day of treatment Increasing back or abdominal pain Repeated vomiting; unable to keep medicine down Weakness, dizziness or fainting Ciprofloxacin Hydrochloride Oral tablet What is this medicine? CIPROFLOXACIN (sip delilah FLOX a sin) is a quinolone antibiotic. It is used to treat certain kinds of bacterial infections. It will not work for colds, flu, or other viral infections. How should I use this medicine? Take this medicine by mouth with a glass of water. Follow the directions on the prescription label. Take your medicine at regular intervals. Do not take your medicine more often than directed. Take all of your medicine as directed even if you think your are better. Do not skip doses or stop your medicine early. You can take this medicine with food or on an empty stomach. It can be taken with a meal that contains dairy or calcium, but do not take it alone with a dairy product, like milk or yogurt or calcium-fortified juice. A special MedGuide will be given to you by the pharmacist with each prescription and refill. Be sure to read this information carefully each time. Talk to your wellness director regarding the use of this medicine in children. Special care may be needed. What side effects may I notice from receiving this medicine? Side effects that you should report to your doctor or health interior plant caretaker as soon as possible: - allergic reactions like skin rash, itching or hives, swelling of the face, lips, or tongue - breathing problems - confusion, nightmares or hallucinations - feeling faint or lightheaded, falls - irregular heartbeat - joint, muscle or tendon pain or swelling - pain or trouble passing urine -persistent headache with or without blurred vision - redness, blistering, peeling or loosening of the skin, including inside the mouth - seizure - unusual pain, numbness, tingling, or weakness Side effects that usually do not require medical attention (report to your doctor or health interior plant caretaker if they continue or are bothersome): - diarrhea - nausea or stomach upset - white patches or sores in the mouth What may interact with this medicine? Do not take this medicine with any of the following medications: cisapride droperidol terfenadine tizanidine This medicine may also interact with the following medications: antacids caffeine cyclosporin didanosine (ddI) buffered tablets or powder medicines for diabetes medicines for inflammation like ibuprofen, naproxen methotrexate multivitamins omeprazole phenytoin probenecid sucralfate theophylline warfarin What if I miss a dose? If you miss a dose, take it as soon as you can. If it is almost time for your next dose, take only that dose. Do not take double or extra doses. Where should I keep my medicine? Keep out of the reach of children. Store at room temperature below 30 degrees C (86 degrees F). Keep container tightly closed. Throw away any unused medicine after the expiration date. What should I tell my health care provider before I take this medicine? They need to know if you have any of these conditions: -bone problems -cerebral disease -joint problems -irregular heartbeat -kidney disease -liver disease -myasthenia gravis -seizure disorder -tendon problems -an unusual or allergic reaction to ciprofloxacin, other antibiotics or medicines, foods, dyes, or preservatives - or trying to get -breast-feeding What should I watch for while using this medicine? Tell your doctor or health interior plant caretaker if your symptoms do not improve. Do not treat diarrhea with over the counter products. Contact your doctor if you have diarrhea that lasts more than 2 days or if it is severe and watery. You may get drowsy or dizzy. Do not drive, use machinery, or do anything that needs mental alertness until you know how this medicine affects you. Do not stand or sit up quickly, especially if you are an older patient. This reduces the risk of dizzy or fainting spells. This medicine can make you more sensitive to the sun. Keep out of the sun. If you cannot avoid being in the sun, wear protective clothing and use sunscreen. Do not use sun lamps or tanning beds/booths. Avoid antacids, aluminum, calcium, iron, magnesium, and zinc products for 6 hours before and 2 hours after taking a dose of this medicine. You have been given the following additional information: Abdominal Pain, Unknown Cause, (Male) Biliary Colic With Gallstone (Confirmed) Bladder Infection, Male (Adult) Ciprofloxacin Hydrochloride Oral tablet (Electronically signed by Nathan Velasco MD 12/13/2016 16:41)
== END 2016-12-13 14:25 | disposition home or self-care (01) ==
LOC: ED SRH 10:01
DX: K57.90 Diverticulosis of intestine, part unspecified, without perforation or abscess without bleeding (principal); K80.20 Calculus of gallbladder without cholecystitis without obstruction; N39.0 Urinary tract infection, site not specified; I10 Essential (primary) hypertension; E11.9 Type 2 diabetes mellitus without complications; Z87.891 Personal history of nicotine dependence; Z79.01 Long term (current) use of anticoagulants; Z79.899 Other long term (current) drug therapy; Z79.82 Long term (current) use of aspirin; Z79.84 Long term (current) use of oral hypoglycemic drugs
CPT/HCPCS: 90004; 90065; 90074; 90100; 90469; 92031; 92235; 92530; 94001; 94060; 95059